=== PATIENT | female | born 1950 | race Caucasian/White ===

== ENCOUNTER 2024-04-18 09:25 | Day surgery (SDC) | payer MEDICAID ==
[~2024-04-18 09:25] MED LIST: LIDOCAINE/PF 2% 5 ML SYRINGE IVP ONE; PROPOFOL 1% 20 ML VIAL IVP ONE
[2024-04-18] MEDS ORDERED: SODIUM CHLORIDE 0.9% 1,000 ML IV ONE (09:30)
[2024-04-18] MEDS ORDERED: LOSA-382 PO (11:08)
[2024-04-18] MEDS ORDERED: ATOR20TA65 PO (11:14)
[2024-04-18] MEDS ORDERED: METF-1211 PO ×2 (11:14)
[2024-04-18] MEDS ORDERED: AMLO5TAB66 PO (11:14)
[2024-04-18] MEDS ORDERED: ASPI-1450 PO (11:15)
[2024-04-18 11:20] LABS: GLUCOMETER DEV NAME(LOC) SDS.; GLUCOSE,POINT OF CARE 97 MG/DL (70-110)
== END 2024-04-18 13:20 | disposition home or self-care (01) ==
LOC: SURGERY 09:25
PROVIDERS: ATTEND Internal Medicine
DX: Z12.11 Encounter for screening for malignant neoplasm of colon (principal); K63.5 Polyp of colon; K64.8 Other hemorrhoids; K59.00 Constipation, unspecified; K21.00 Gastro-esophageal reflux disease with esophagitis, without bleeding; K29.70 Gastritis, unspecified, without bleeding; I10 Essential (primary) hypertension; E11.9 Type 2 diabetes mellitus without complications; Z79.82 Long term (current) use of aspirin; Z79.899 Other long term (current) drug therapy
CPT/HCPCS: 45385; 43239; 82962; 88305; C1769; J2704; J3490